=== PATIENT | female | born 1990 | race Caucasian/White ===

== ENCOUNTER 2017-02-24 07:49 | Emergency (ER) | payer SELFPAY ==
[~2017-02-24] VITALS: Ht 162.6 cm; Wt 72.0 kg
[2017-02-24 08:10] VITALS: BP 118/64; PULSE 85; RESP 15; TEMP 98.5; O2SAT 98
--- NOTE | 2017-02-24 09:06 | PD ---
HPI Chief Complaint: Psychiatric Symptoms Time Seen by Provider: 08:59 Travel History International Travel<30 days: No Contact w/Intl Traveler<30days: No Traveled to known affect area: No History of Present Illness HPI This is a 26 year old female who presents to the emergency department having been abusing cocaine last evening and reportedly telling her family that she wanted to kill herself. Currently she denies any suicidal ideation. She was transferred here from [facility] under a Mistry act. She has no medical complaints. Labs were obtained prior to arrival which were reassuring. PFSH Past Medical History Medical History: Denies Significant Hx Tetanus Vaccination: Unknown Influenza Vaccination: No ?: Not LMP: 02/18/17 Past Surgical History Surgical History: No Previous Surgery Social History Alcohol Use: Yes (WEEKEND BINGES) Tobacco Use: Yes (/2 PPD) Substance Use: Yes (COCAINE, MARIJUANA, HEROIN (SNORT) ) Allergies-Medications (Allergen,Severity, Reaction): Coded Allergies: No Known Allergies (Unverified , 02/24/17) Reported Meds & Prescriptions Reported Meds & Active Scripts Active No Active Prescriptions or Reported Medications Review of Systems General / Constitutional: No: Fever, Chills Cardiovascular: No: Chest Pain or Discomfort Physical Exam Narrative GENERAL: Well-appearing, no acute distress, nontoxic SKIN: Warm and dry. HEAD: Atraumatic. Normocephalic. ENT: No nasal bleeding or discharge. Moist mucous membranes MUSCULOSKELETAL: No obvious deformities. No clubbing. No cyanosis. No edema. NEUROLOGICAL: Awake and alert. No obvious cranial nerve deficits. Motor grossly within normal limits. Normal speech. Data Data Last Documented VS Vital Signs Date Time Temp Pulse Resp B/P Pulse Ox O2 Delivery O2 Flow Rate FiO2 02/24/17 08:10 98.5 85 15 118/64 98 Room Air Orders Psych Screen (02/24/17 08:55) Diet Regular Basic (02/24/17 Breakfast) MDM Medical Decision Making Medical Screen Exam Complete: Yes Emergency Medical Condition: Yes Differential Diagnosis Depression, substance induced mood disorder, bipolar disorder Narrative Course This is a 26-year-old female who arrived here in transfer from [facility] under a Mistry act for substance abuse and depression. Patient has no active medical issues. She'll be evaluated by psychiatry. Scripts No Active Prescriptions or Reported Meds Alva Jones MD Feb 24, 2017 09:06
--- NOTE | 2017-02-24 10:35 | PD ---
History of Present Illness Chief Complaint: Psychiatric Symptoms Time Seen by Provider: 10:00 Travel History International Travel<30 Days: No Contact w/Intl Traveler<30days: No Known affected area: No Legal Status Legal Status: Mistry Act Mistry Act Signed By: History of Present Illness: This is a 26-year-old female who was Mistry acted last night from an outside hospital due to reports of suicidal ideation. Patient admits she may have said the wrong thing but also admits that she was using too much cocaine last night. Apparently the cocaine made her ill and she was vomiting and distressed. The patient is in this area to visit her cousin but resides in [facility]. She denies any desire to harm herself or anyone else at this time. She is no longer intoxicated with cocaine. She exhibits no psychotic symptoms. Her cognition is intact and she is verbally hayden for safety. She would like to return home to her cousin and eventually home to [place], where her mother lives. She denies symptoms of major depression. PFSH Past Medical History Medical History: Denies Significant Hx Tetanus Vaccination: Unknown Influenza Vaccination: No ?: Not LMP: 02/18/17 Past Surgical History Surgical History: No Previous Surgery Psychiatric History Psychiatric History Hx Psychiatric Treatment: Denied for previous psychiatric treatment. Social History Hx Alcohol Use: Yes (WEEKEND BINGES) Hx Tobacco Use: Yes (1/2 PPD) Hx Substance Use: Yes (COCAINE, MARIJUANA, HEROIN (SNORT) ) Hx of Substance Use Treatment: No Allergies-Medications (Allergen,Severity, Reaction): Coded Allergies: No Known Allergies (Unverified , 02/24/17) Reported Meds & Prescriptions Reported Meds & Active Scripts Active No Active Prescriptions or Reported Medications Review of Systems Except as stated in HPI: all other systems reviewed are Neg Exam Alert: Yes [place]: Person, Place, Date, Situation Mood: Calm Affect: Appropriate Speech: Clear, Logical Eye Contact: Normal Memory Intact: Immediate, Recent, Remote Insight/Judgement Adequate MDM Medical Decision Making Medical Record Reviewed: Yes Assessment/Plan Mistry act is being lifted and the patient is being sent home to her cousin. She is verbally hayden for safety and she is competent to do so. She was advised to stop using cocaine. She plans to return to [place] and her mother. In this physician's opinion, she does not meet criteria for Mistry act or inpatient psychiatric hospitalization at this time. Orders Psych Screen (02/24/17 08:55) Diet Regular Basic (02/24/17 Breakfast) Results Vital Signs Date Time Temp Pulse Resp B/P Pulse Ox O2 Delivery O2 Flow Rate FiO2 02/24/17 08:10 98.5 85 15 118/64 98 Room Air Diagnosis Primary Impression: Cocaine abuse Prescriptions No Active Prescriptions or Reported Meds Felix Hanna MD Feb 24, 2017 10:35
== END 2017-02-24 11:00 | disposition home or self-care (01) ==
LOC: NEPD 07:49
DX: F14.10 Cocaine abuse, uncomplicated (principal); F17.210 Nicotine dependence, cigarettes, uncomplicated; F12.90 Cannabis use, unspecified, uncomplicated; F15.90 Other stimulant use, unspecified, uncomplicated
CPT/HCPCS: 99284